=== PATIENT | male | born 1955 | race Caucasian/White ===

== ENCOUNTER → 2019-09-08 | Outpatient (CLI) | payer BC ==
[~2019-09-08] MED LIST: ASPI-630 PO; CARV6.2511 PO; DOCU-109 PO; FENO160T PO; FURO40TA4 PO; HYDR-3164 PO; IBUP200T77 PO; LISI1TAB20 PO; METH-38 PO; MULT-121 PO; POTA10TA12 PO; SIMV20TA18 PO; TAMS0.4C97 PO
[2019-09-08 12:46] LABS: ALBUMIN/GLOBULIN RATIO 1.3 (1.0-1.7); CALCIUM 8.9 mg/dL (8.5-10.1); CREATININE 1.1 mg/dL (0.7-1.3); GFR 67.8; TOTAL BILIRUBIN 0.5 mg/dL (0.2-1.0)
[2019-09-08 12:49] LABS: BASO % 1 % (0-3); EOS # 0.3 x10^3/uL (0.0-0.7); EOS % 4 % (0-3); HEMATOCRIT 40.8 % (39.0-53.0); LYMPH # 3.1 x10^3/uL (1.0-4.8); LYMPH % 40 % (24-48); MEAN CORPUSCULAR HEMOGLOBIN 29 pg (25-35); MEAN CORPUSCULAR HGB CONC 34 g/dL (31-37); MEAN CORPUSCULAR VOLUME 84 fL (79-100); MONO # 0.6 x10^3/uL (0.0-1.1); MONO % 8 % (0-9); NEUT # 3.7 x10^3/uL (1.8-7.7); NEUT % 48 % (31-73); PLATELET COUNT 246 x10^3/uL (140-400); RED BLOOD COUNT 4.83 x10^6/uL (4.30-5.70); WHITE BLOOD COUNT 7.7 x10^3/uL (4.0-11.0)
--- NOTE | 2019-09-08 13:00 | NUR ---
Dr Alvarez reviewed EKG. No further orders.
--- NOTE | 2019-09-08 15:14 | EKG ---
[facility] [address] [place] [address] Test Date: 2019-09-08 Test Time: 12:43:22 Pat Name: KAVON MENENDEZ Department: Room: Gender: Fabrication Engineer: JENNIFER : 1955 Requested By: JOSE TIWARI Order Number: [id number] Reading MD: Karthik Gallardo Measurements Intervals [place] Rate: 72 P: -84 AK: 166 QRS: 118 QRSD: 142 T: 165 QT: 428 QTc: 470 Interpretive Statements SINUS RHYTHM ABNORMAL RIGHT AXIS DEVIATION RIGHT BUNDLE BRANCH BLOCK QRS(T) CONTOUR ABNORMALITY CONSIDER HIGH LATERAL INFARCT ABNORMAL ECG RI6.01 No previous ECG available for comparison Electronically Signed On 09-09-2019 8:42:10 CDT by Karthik Gallardo
[2019-09-09 04:08] LABS: HEMOGLOBIN A1C 6.3 % (4.8-5.6)
== END | disposition home or self-care (01) ==
LOC: SURGPAT 11:32
PROVIDERS: ATTEND Neurological Surgery
DX: Z01.818 Encounter for other preprocedural examination (principal); Z11.59 Encounter for screening for other viral diseases; M47.26 Other spondylosis with radiculopathy, lumbar region
CPT/HCPCS: 36415; 80053; 83036; 85025; 87641; 93005; U0003

== ENCOUNTER 2019-09-11 07:23 | Day surgery (SDC) | payer BC ==
--- NOTE | 2019-09-10 12:35 | HP ---
ADMIT DATE: 09/11/2019. PREOPERATIVE HISTORY AND PHYSICAL DATE OF SURGERY: 09/11/2019. HISTORY OF PRESENT ILLNESS: The patient is a pleasant 64-year-old who has back pain, which radiates into his right leg. The pain tends to radiate into the right buttock and hip region and posterior thigh and leg. He notes numbness in his toes diffusely. The problem started in 03/2019 after he stepped into a hole while hunting. He says the pain is a 9/10 at its worse and at a 3/10 at its best. Standing and walking increases pain. Lying down and ice help him. He has been taking ibuprofen. He has had 3 epidural steroid injections, which did help for a short time. He underwent 6 weeks of physical therapy, which he said only helped a little. He underwent lumbar surgery in 2007 and did very well from that. PAST MEDICAL HISTORY: Diabetes, blood clots, hypertension. PAST SURGICAL HISTORY: Right ankle, lumbar surgery in 2007, a right knee surgery. FAMILY HISTORY: Cancer and hypertension. SOCIAL HISTORY: Employed as a building maintenance superintendent. . Nonsmoker. Drinks alcohol 1-2 times per week. ALLERGIES: CELEBREX. CURRENT MEDICATIONS: Ibuprofen, Coreg, Zovirax, aspirin, fenofibrate, Lasix, lisinopril with hydrochlorothiazide, multivitamin, potassium chloride, simvastatin, tamsulosin hydrochloride. REVIEW OF SYSTEMS: A 12-point review of systems is obtained and is noncontributory except that mentioned above. PHYSICAL EXAMINATION: NEUROSURGERY EXAMINATION: GENERAL APPEARANCE: Alert, pleasant, in no acute distress. HEAD: Normocephalic and atraumatic. SKIN: Warm and dry. Well-healed lumbar incision. BACK: Slph-zw-kytrcmdn tenderness of lower lumbar spine with palpation. MUSCULOSKELETAL: Lumbar paraspinal muscle bulk is normal. Lumbar spine range of motion is restricted. Normal range of motion of the lower extremities. EXTREMITIES: No clubbing, cyanosis or edema. NEUROLOGIC: Alert and oriented x 3. Speech clear, strength 5/5 in bilateral lower extremities, sensory intact to light touch in bilateral lower extremities, reflexes present and symmetric in lower extremities. SLR is positive on the right, negative on the left and antalgic gait. IMAGING: I reviewed a lumbar MRI scan. On that study, there are postoperative changes at L3-L4 and L5-S1 on the right. At L4-L5, there is significant lateral recess and subarticular stenosis on the right side with compression of the right L5 nerve root. ASSESSMENT/ PLAN: I do think that the primary problem is lateral stenosis present at L4-L5 on the right side. He has failed conservative measures including physical therapy and epidural steroid injections. My recommendation is that he undergo lumbar microsurgery at L4-L5 on the right, to decompress the right L5 nerve root. I spoke with him about this in detail. I did outline the risks as well. He understands. He would like to go ahead. We will make the arrangements. JOSE TIWARI MD DR: BARBI/elian JOB#: [id number] / [id number] VAUGHN
[~2019-09-11] VITALS: Ht 154.9 cm; Wt 117.0 kg
[~2019-09-11 07:23] MED LIST changes: +BACITRACIN 50,000 UNIT in IV NORMAL SALINE 1000ML BAG 1,000 ML IRR ONE; +BUPIVACAINE-EPI 0.5%-1:200000 MPF 30 ML VIAL. ONE; -DOCU-109 PO; +GELATIN SPONGE SIZE 100. ONE; -HYDR-3164 PO; +KETOROLAC 60 MG/2 ML VIAL. ONE; -METH-38 PO; +THROMBIN TOPICAL 20,000 UNIT SPRAY.SYRN KIT TP ONE
[2019-09-11] MEDS ORDERED: DESFLURANE > 120 MINUTES IH ONE (07:55)
[2019-09-11] MEDS ORDERED: fentaNYL PF VIAL 100 MCG/2 ML VIAL ONE (07:55)
[2019-09-11] MEDS ORDERED: LIDOCAINE 2% PF 5 ML VIAL. ONE (07:56)
[2019-09-11] MEDS ORDERED: MIDAZOLAM HCL/PF 2 MG/2 ML VIAL. ONE (07:56)
[2019-09-11] MEDS ORDERED: NEOSTIGMINE METHYLSULFATE 5 MG/5 ML SYRINGE. ONE (07:56)
[2019-09-11] MEDS ORDERED: GLYCOPYRROLATE 1 MG/5 ML VIAL. ONE (07:56)
[2019-09-11] MEDS ORDERED: PROPOFOL 50 ML IV ONE (07:56)
[2019-09-11] MEDS ORDERED: ONDANSETRON PF 4 MG/2 ML VIAL. ONE (07:56)
[2019-09-11] MEDS ORDERED: PROPOFOL 10 MG/ML (20ML) VIAL. IV ONE (07:56)
[2019-09-11] MEDS ORDERED: REMIFENTANIL 2 MG VIAL. IV ONE (07:56)
[2019-09-11] MEDS ORDERED: ROCURONIUM 50 MG/5 ML VIAL. ONE (07:56)
[2019-09-11] MEDS ORDERED: DEXAMETHASONE SOD PHOS 4 MG/ML VIAL ONE (07:57)
[2019-09-11] MEDS ORDERED: PHENYLEPHRINE 10 MG/ML VIAL. ONE (07:57)
[2019-09-11] MEDS ORDERED: IV RINGERS,LACTATED 1000ML 1,000 ML IV SCH (08:15)
[2019-09-11] MEDS ORDERED: ePHEDrine PF IN SALINE 50 MG/10 ML SYRINGE. IV ONE (09:07)
--- NOTE | 2019-09-11 10:59 | OP ---
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 OPERATION PERFORMED: Hemilaminotomy with microdecompression at L4-L5, right, this is a reoperation. The surgery was done with EMG monitoring, SSEP monitoring, fluoroscopy, microscopic dissection. SURGEON: Manuelito Tiwari M.D. BASIC SCIENCES PROFESSOR: LORIE Kendall, assisted with the surgery. She assisted with the exposure of the microdecompression as well as the closure. OPERATIVE INDICATIONS: The patient is a pleasant 64-year-old man who a number of years ago underwent lumbar microsurgery on the right in the lower lumbar spine and did very well. He then several months ago while being active, he stumbled and stepped into a hole and developed significant lower back pain on the right side, which radiated into his right lower extremity. This continued despite conservative measures including physical therapy. I recommended lumbar microsurgery after the above-mentioned findings were seen on lumbar MRI scan. DESCRIPTION OF PROCEDURE: Following general endotracheal anesthesia, the patient was positioned prone on the Acromed spine board. Lumbar region prepped and draped in standard fashion. RAVEN hose and AV impulse boots were applied for DVT prophylaxis. A microscope was draped. Fluoroscopy was draped and brought into field. Monitoring established. Ancef 2 g was given less than 1 hour prior to initiation of the surgery. Using fluoroscopic guidance, an incision was made, which basically was from his previous surgery. Dissection was carried down through skin and subcutaneous tissue and the paraspinal muscles were reflected working down through significant scar and I placed a [place] microdisk retractor and used curettes to expose L4-5. I then used a high-speed air drill and then drilled a generous hemilaminotomy and as I worked out, I realized that this area had been operated on before. There was no ligamentum flavum. The dura was up against the inner aspect of the bone. I can only conceive that it was over a year since his previous surgery, most of the bone had regrown. I did perform a very generous foraminotomy and as I worked inferiorly, there was significant compression of the L5 root just below the level of the disc and I trimmed all this material away and fully decompressed the root as it exited, worked superiorly, and assured myself that the dura was quite free. I irrigated copiously with antibiotic solution. I then removed the retractors and obtained perfect hemostasis, closed the wound with absorbable suture. Th skin was closed with 4-0 subcuticular stitch. The surgery went very well. MANUELITO TIWARI MD DR: BARBI/elian JOB#: [id number] / [id number] VAUGHN
[2019-09-11] MEDS ORDERED: HYDR-3164 PO ×2 (11:10→11:17)
[2019-09-11] MEDS ORDERED: DOCU-109 PO (11:10)
[2019-09-11] MEDS ORDERED: METH-38 PO (11:10)
--- NOTE | 2019-09-11 11:12 | DISCH ---
DISCHARGE INSTRUCTIONS Condition on Discharge Condition on Discharge: Stable Activity After Discharge Activity Instructions for Disc: Activity as tolerated, Avoid exertion Other activity instructions: no driving for a week Bathing Instructions: Shower-keep dressing dry Lifting Instructions after Dis: No heavy lifting, No pulling or pushing, Do not lift >10 pounds Diet after Discharge Additional Diet Restrictions: resume home diet Wound Incision Care Wound/Incision Care: Ice to area for comfort Other wound/incision instructi: may remove dressing in 48 hours if dry then may shower, no soaking Contacting the after DC Call your doctor for: Concerns you may have Follow-Up Follow up with: Dr. Tiwari's nurse in 2 weeks [phone] JOSE TIWARI MD September 11, 2019 11:12
[2019-09-11] MEDS ORDERED: HYDROcodone/APAP 5/325MG 1 TAB TABLET PO ONE ×2 (11:15→11:45)
[2019-09-11 11:56] VITALS: BP 178/68
--- NOTE | 2019-09-12 15:07 | PATHOLOGY ---
[facility] Accession Number: [id number] . 01 Material submitted: . vertebral column - LUMBAR DECOMPRESSION . 01 Clinical history: . Lumbar spondylosis with radiculopathy. . 02 Diagnosis: Fibrocartilaginous tissue and muscle "#1 lumbar decompression": - Fibrocartilaginous tissue consistent with disc material. (SHA:pit 09/12/2019) QTP 09/12/2019 1353 Local . 02 Electronically signed: . Jonn Saleem MD, Pathologist NPI- [id number] . 01 Gross description: . Received in formalin labeled "Beck, Maurizio, lumbar decompression" is a 3.0 x 2.7 x 0.3 cm aggregate of noriega-pink soft tissue and bony tissue. The specimen is submitted entirely in cassette A1 following decalcification. ([facility] [place]; 09/11/2019) [facility] 09/11/2019 1700 Local . 02 Pathologist provided ICD-10: M47.896, M54.16 . 02 CPT . 049884, [id number] Specimen Comment: A courtesy copy of this report has been sent to [phone] Specimen Comment: Report sent to Performed at: 01 [facility] [place] [address], [place] [id number] MD Anthony Jacinto MD Phone: [phone] Performed at: 02 [facility] [place] [address], [place] [id number] MD Abner Cain MD Phone: [phone]
== END 2019-09-11 12:45 | disposition home or self-care (01) ==
LOC: SURG 07:23 → EDUNIT# 08:30 → SURG 12:45
PROVIDERS: ATTEND Neurological Surgery
DX: M54.16 Radiculopathy, lumbar region (principal); M48.061 Spinal stenosis, lumbar region without neurogenic claudication; I10 Essential (primary) hypertension; E11.9 Type 2 diabetes mellitus without complications; E66.9 Obesity, unspecified; Z98.890 Other specified postprocedural states; Z82.49 Family history of ischemic heart disease and other diseases of the circulatory system; Z88.8 Allergy status to other drugs, medicaments and biological substances; Z79.899 Other long term (current) drug therapy; Z79.82 Long term (current) use of aspirin; Z68.34 Body mass index [BMI] 34.0-34.9, adult; Z86.718 Personal history of other venous thrombosis and embolism
CPT/HCPCS: 63030; 97161; A7015; J0696; J1100; J1885; J2250; J2370; J2405; J2704; J2710; J3010; J3490; J7030; J7120; 76000; 88304; 88311